=== PATIENT | male | born 1940 | race Caucasian/White ===

== ENCOUNTER 2018-11-13 17:39 | Inpatient (IN) | payer OTHER | END 2018-11-16 17:43 | disposition short-term general hospital (02) | LOC: ER 17:39 → TELE-EAST 20:58 | DX: I50.43 Acute on chronic combined systolic (congestive) and diastolic (congestive) heart failure (principal); I24.9 Acute ischemic heart disease, unspecified; Z95.5 Presence of coronary angioplasty implant and graft; I25.10 Atherosclerotic heart disease of native coronary artery without angina pectoris; I11.0 Hypertensive heart disease with heart failure; Z95.0 Presence of cardiac pacemaker; Z95.1 Presence of aortocoronary bypass graft; Z82.49 Family history of ischemic heart disease and other diseases of the circulatory system; Z86.73 Personal history of transient ischemic attack (TIA), and cerebral infarction without residual deficits ==

== ENCOUNTER 2024-04-25 16:54 | Inpatient (IN) | payer OTHER ==
[~2024-04-25] VITALS: Ht 175.3 cm; Wt 72.3 kg
[~2024-04-25 16:54] MED LIST: APIX5TAB PO; ATOR-507 PO; CLON0.1T PO; CLOP75TA28 PO; FURO1TAB31 PO; ISOS1TAB29 PO; METO-158 PO; NITR0.4S29 SL; POTA-36 PO; RANO500T PO; SACU1TAB4 PO; TRAZ-228 PO
[2024-04-25 19:47] LABS: Basophils # (auto) 0.1 10 ^3/uL (0-0.2); Basophils % (auto) 0.8 % (0.0-2.0); Eosinophils # (auto) 0.1 10 ^3/uL (0-0.8); Eosinophils % (auto) 1.1 % (0.0-7.0); Hemoglobin 11.5 g/dL (13.5-17.5); Lymphocytes # (auto) 1.1 10 ^3/uL (0.4-5.4); Lymphocytes % (auto) 10.7 % (10.0-50.0); Mean Corpuscular Hemoglobin 27.3 pg (28.0-32.0); Mean Corpuscular Hgb Conc. 32.8 g/dL (32.0-36.0); Mean Corpuscular Volume 83.3 fL (80.0-100.0); Monocytes # (auto) 0.7 10 ^3/uL (0-1.3); Monocytes % (auto) 6.5 % (0.0-12.0); Neutrophils # (auto) 8.6 10 ^3/uL (1.6-8.6); Neutrophils % (auto) 80.9 % (37.0-80.0); Nucleated Red Blood Cells % 0.2 %; Red Blood Cells 4.21 10^6/uL (4.5-5.90); Red Cell Distribution Width 19.5 % (11.8-14.3); White Blood Cell 10.7 10^3/uL (4.4-10.8)
[2024-04-25 20:01] LABS: Alanine Aminotransferase 29 U/L (7-40); Albumin 4.2 g/dL (3.2-4.8); Alkaline Phosphatase 122 U/L (46-116); Anion Gap 9 (5-15); Aspartate Aminotransferase 26 U/L (13-40); BUN/Creatinine Ratio 16.9 (10.0-20.0); Blood Urea Nitrogen 25 mg/dL (9-23); Calcium 8.9 mg/dL (8.7-10.4); Carbon Dioxide 23 mmol/L (20-30); Chloride 106 mmol/L (98-107); Glucose 98 mg/dL (74-106); Potassium 4.5 mmol/L (3.5-5.1); Sodium 138 mmol/L (136-145)
[2024-04-25 20:02] LABS: Bilirubin, Total 2.5 mg/dL (0.2-1.0); Total Protein 6.5 g/dL (5.7-8.2)
[2024-04-25 21:06] VITALS: PULSE 66; RESP 16; O2SAT 97
[2024-04-25] MEDS: AZITHROMYCIN 500MG/ 250ML 250 ML IV ONE (22:00)
[2024-04-25 22:45] VITALS: PULSE 72; RESP 16; O2SAT 98
[2024-04-25] MEDS ORDERED: HYDROcodone-ACET 5/325MG TAB PO PRN (23:15)
[2024-04-25] MEDS ORDERED: hydrALAZINE HCL 20 MG/ML VL IV PRN (23:15)
[2024-04-25] MEDS ORDERED: DOCUSATE SOD 100 MG CAP PO PRN (23:15)
[2024-04-25] MEDS ORDERED: ONDANSETRON HCL 4 MG/2 ML VIAL IV PRN (23:15)
[2024-04-25] MEDS: FUROSEMIDE 100 MG/10ML VIAL IV ONE (23:43)
[2024-04-25 23:45] LABS: Urine Bacteria None Seen /hpf (None Seen)
[2024-04-25] MEDS ORDERED: NITROGLYCERIN 0.4 MG SL TAB SL PRN (23:45)
[2024-04-25] MEDS ORDERED: MORPHINE SULFATE INJ 2 MG/ml SYRG IV PRN (23:45)
[2024-04-25 23:53] LABS: Urine Blood 1+ /uL (Negative); Urine Clarity Clear (Clear); Urine Color Yellow (Yellow); Urine Protein, UAD 1+ (Negative); Urine Specific Gravity 1.023 (1.001-1.035); Urine Urobilinogen 2 mg/dL (Negative); Urine WBC 2 /hpf (0 - 3); Urine WBC Clumps PRESENT /hpf (None Seen); Urine pH 5.5 (5.0-9.0)
[2024-04-26] VITALS (11 sets, daily range): BP systolic 85–137; BP diastolic 45–98; PULSE 58–81; RESP 16–20; TEMP 97.1–98.1; O2SAT 91–99
[2024-04-26] MEDS ORDERED: DAPA1TAB4 PO (02:48)
[2024-04-26] MEDS ORDERED: LOPE2CAP PO (02:48)
[2024-04-26] MEDS ORDERED: LOSA-533 PO (02:48)
[2024-04-26] MEDS ORDERED: TAMS0.4C36 PO (02:48)
[2024-04-26] MEDS ORDERED: FINA5TAB4 PO (02:48)
[2024-04-26] MEDS ORDERED: ASPI-498 OR (02:48)
[2024-04-26] MEDS ORDERED: TORS20TA20 PO (02:48)
[2024-04-26] MEDS ORDERED: METH-552 PO (02:48)
[2024-04-26] MEDS ORDERED: PRED10TA PO (02:48)
[2024-04-26] MEDS: SODIUM CHLOR 0.9% PF (SALINE LOCK) 10ML VIAL/SYR IV SCH (05:50)
[2024-04-26 06:39] LABS: Basophils # (auto) 0.1 10 ^3/uL (0-0.2); Basophils % (auto) 0.8 % (0.0-2.0); Eosinophils # (auto) 0.2 10 ^3/uL (0-0.8); Eosinophils % (auto) 1.7 % (0.0-7.0); Hematocrit 32.2 % (41.0-53.0); Hemoglobin 11.1 g/dL (13.5-17.5); Lymphocytes # (auto) 1.2 10 ^3/uL (0.4-5.4); Lymphocytes % (auto) 12.3 % (10.0-50.0); Mean Corpuscular Hemoglobin 28.3 pg (28.0-32.0); Mean Corpuscular Hgb Conc. 34.5 g/dL (32.0-36.0); Mean Corpuscular Volume 82.1 fL (80.0-100.0); Monocytes # (auto) 0.7 10 ^3/uL (0-1.3); Monocytes % (auto) 7.4 % (0.0-12.0); Neutrophils # (auto) 7.6 10 ^3/uL (1.6-8.6); Neutrophils % (auto) 77.8 % (37.0-80.0); Red Blood Cells 3.93 10^6/uL (4.5-5.90); Red Cell Distribution Width 19.1 % (11.8-14.3); White Blood Cell 9.8 10^3/uL (4.4-10.8)
[2024-04-26 06:49] LABS: Alanine Aminotransferase 25 U/L (7-40); Albumin 3.9 g/dL (3.2-4.8); Alkaline Phosphatase 107 U/L (46-116); Anion Gap 8 (5-15); Aspartate Aminotransferase 23 U/L (13-40); BUN/Creatinine Ratio 15.4 (10.0-20.0); Bilirubin, Total 2.3 mg/dL (0.2-1.0); Blood Urea Nitrogen 22 mg/dL (9-23); Calcium 8.7 mg/dL (8.7-10.4); Carbon Dioxide 23 mmol/L (20-30); Chloride 107 mmol/L (98-107); Glucose 92 mg/dL (74-106); Sodium 138 mmol/L (136-145); Total Protein 6.2 g/dL (5.7-8.2)
[2024-04-26 08:52] LABS: Amphetamine Screen, Urine Neg (NEGATIVE); Benzodiazephine Screen, Urine Neg (NEGATIVE)
[2024-04-26 08:53] LABS: Barbiturate Scree,Urine Neg (NEGATIVE); Cannabinoid Screen, Urine Neg (NEGATIVE); Cocaine Screen, Urine Neg (NEGATIVE); Opiate Scree,Urine Neg (NEGATIVE); Phencyclidine Screen, Urine Neg (NEGATIVE)
[2024-04-26] MEDS: APIXABAN 5 MG TAB PO SCH ×2 (10:17→21:04)
[2024-04-26] MEDS: CARVEDILOL 12.5 MG TAB PO SCH (10:17)
[2024-04-26] MEDS: FUROSEMIDE 40 MG/4 ML VIAL IV SCH (10:17)
[2024-04-26] MEDS: ACETAMINOPHEN 325 MG TAB PO PRN (10:25)
[2024-04-26] MEDS: AZITHROMYCIN 500MG/ 250ML 250 ML IV SCH (11:09)
[2024-04-26] MEDS ORDERED: NITROGLYCERIN 0.4 MG SL TAB SL PRN (11:45)
[2024-04-26] MEDS: ATORVASTATIN 20 MG TAB PO ONE (18:25)
[2024-04-26] MEDS: TAMSULOSIN HYDROCHLORIDE 0.4 MG CAP PO SCH (18:26)
[2024-04-26] MEDS: RANOLAZINE ER 500 MG TAB PO SCH (21:05)
[2024-04-26] MEDS: ATORVASTATIN 20 MG TAB PO SCH (21:05)
[2024-04-26] MEDS ORDERED: SACUBITRIL-VALSARTAN 24mg/26mg TAB PO SCH (22:00)
[2024-04-26] MEDS ORDERED: ISOSORBIDE MONONITRATE ER 60 MG TAB PO SCH (22:00)
[2024-04-26] MEDS ORDERED: METOPROLOL TARTRATE 50 MG TAB PO SCH (22:00)
[2024-04-27] VITALS (8 sets, daily range): BP systolic 98–136; BP diastolic 54–85; PULSE 58–77; RESP 16–20; TEMP 97.5–97.8; O2SAT 93–100
[2024-04-27 05:12] LABS: Anion Gap 8 (5-15); Basophils # (auto) 0.1 10 ^3/uL (0-0.2); Basophils % (auto) 0.7 % (0.0-2.0); Carbon Dioxide 22 mmol/L (20-30); Chloride 106 mmol/L (98-107); Eosinophils # (auto) 0.3 10 ^3/uL (0-0.8); Eosinophils % (auto) 2.9 % (0.0-7.0); Hematocrit 32.6 % (41.0-53.0); Hemoglobin 10.7 g/dL (13.5-17.5); Lymphocytes # (auto) 1.3 10 ^3/uL (0.4-5.4); Lymphocytes % (auto) 12.2 % (10.0-50.0); Mean Corpuscular Hemoglobin 27.5 pg (28.0-32.0); Mean Corpuscular Hgb Conc. 32.9 g/dL (32.0-36.0); Mean Corpuscular Volume 83.4 fL (80.0-100.0); Monocytes # (auto) 0.6 10 ^3/uL (0-1.3); Neutrophils # (auto) 8.2 10 ^3/uL (1.6-8.6); Neutrophils % (auto) 78.2 % (37.0-80.0); Nucleated Red Blood Cells % 0.1 %; Potassium 3.8 mmol/L (3.5-5.1); Red Blood Cells 3.91 10^6/uL (4.5-5.90); Red Cell Distribution Width 19.5 % (11.8-14.3); Sodium 136 mmol/L (136-145); White Blood Cell 10.5 10^3/uL (4.4-10.8)
[2024-04-27 05:13] LABS: Calcium 8.4 mg/dL (8.7-10.4)
[2024-04-27 05:18] LABS: Blood Urea Nitrogen 21 mg/dL (9-23); Glucose 92 mg/dL (74-106)
[2024-04-27] MEDS: CLOPIDOGREL BISULFATE 75 MG TAB PO SCH (09:31)
[2024-04-27] MEDS: FINASTERIDE 5 MG TAB PO SCH (09:32)
[2024-04-27] MEDS: methIMAzole 5 MG TAB PO SCH (09:32)
[2024-04-27] MEDS: ASPirin-EC 81 mg tab PO SCH (09:36)
[2024-04-27] MEDS ORDERED: TORSEMIDE 20 MG TAB PO SCH (10:00)
[2024-04-27] MEDS ORDERED: LOSARTAN POTASSIUM 25 MG TAB PO SCH (10:00)
[2024-04-27] MEDS: SACUBITRIL-VALSARTAN 24mg/26mg TAB PO SCH (17:09)
[2024-04-27] MEDS: APIXABAN 2.5 MG TAB PO SCH (21:41)
[2024-04-28] VITALS (7 sets, daily range): BP systolic 108–128; BP diastolic 56–74; PULSE 71–78; RESP 16–20; TEMP 97.6–98; O2SAT 95–99
[2024-04-28 06:29] LABS: Basophils # (auto) 0 10 ^3/uL (0-0.2); Basophils % (auto) 0.4 % (0.0-2.0); Eosinophils # (auto) 0.2 10 ^3/uL (0-0.8); Eosinophils % (auto) 1.7 % (0.0-7.0); Hematocrit 32.8 % (41.0-53.0); Lymphocytes % (auto) 9.1 % (10.0-50.0); Mean Corpuscular Hemoglobin 27.9 pg (28.0-32.0); Mean Corpuscular Hgb Conc. 33.7 g/dL (32.0-36.0); Mean Corpuscular Volume 82.7 fL (80.0-100.0); Monocytes # (auto) 0.7 10 ^3/uL (0-1.3); Monocytes % (auto) 6.6 % (0.0-12.0); Neutrophils # (auto) 9.1 10 ^3/uL (1.6-8.6); Neutrophils % (auto) 82.2 % (37.0-80.0); Nucleated Red Blood Cells % 0.1 %; Red Blood Cells 3.96 10^6/uL (4.5-5.90); Red Cell Distribution Width 19.3 % (11.8-14.3)
[2024-04-28 06:34] LABS: Chloride 105 mmol/L (98-107); Potassium 3.8 mmol/L (3.5-5.1); Sodium 137 mmol/L (136-145)
[2024-04-28 06:35] LABS: Calcium 8.4 mg/dL (8.7-10.4)
[2024-04-28 06:40] LABS: BUN/Creatinine Ratio 14.4 (10.0-20.0); Blood Urea Nitrogen 18 mg/dL (9-23)
[2024-04-28 06:59] LABS: Glucose 91 mg/dL (74-106)
[2024-04-28 07:35] LABS: Anion Gap 12 (5-15); Carbon Dioxide 20 mmol/L (20-30)
[2024-04-28 09:21] LABS: Free T3 2.19 pg/mL (2.3-4.2); Free T4 (Free Thyroxine) 1.51 ng/dL (0.89-1.76)
[2024-04-28] MEDS ORDERED: METOPROLOL SUCCINATE XL 50 MG TAB PO SCH (10:00)
[2024-04-28] MEDS ORDERED: cloNIDine HCL 0.1 MG TAB PO SCH (10:00)
[2024-04-28] MEDS ORDERED: FUROSEMIDE 40 MG TAB PO SCH (10:00)
[2024-04-28] MEDS ORDERED: SACU1TAB PO (14:13)
[2024-04-28] MEDS ORDERED: APIX2.5T PO (14:13)
[2024-04-28] MEDS ORDERED: METO25TA93 PO (14:13)
[2024-04-28] MEDS ORDERED: ATORVASTATIN 20 MG TAB PO SCH (22:00)
== END 2024-04-28 17:33 | disposition home or self-care (01) | DRG 291 ==
LOC: ER 17:01 → TELE 23:37 → TELE-WESTW 04-26 02:13
PROVIDERS: ADMIT Internal Medicine; ATTEND Internal Medicine
DX: I13.0 Hypertensive heart and chronic kidney disease with heart failure and stage 1 through stage 4 chronic kidney disease, or unspecified chronic kidney disease (principal); I50.43 Acute on chronic combined systolic (congestive) and diastolic (congestive) heart failure; N17.9 Acute kidney failure, unspecified; K56.7 Ileus, unspecified; I27.22 Pulmonary hypertension due to left heart disease; I25.10 Atherosclerotic heart disease of native coronary artery without angina pectoris; E05.90 Thyrotoxicosis, unspecified without thyrotoxic crisis or storm; I48.91 Unspecified atrial fibrillation; E80.6 Other disorders of bilirubin metabolism; K74.60 Unspecified cirrhosis of liver; N18.2 Chronic kidney disease, stage 2 (mild); Z95.1 Presence of aortocoronary bypass graft; Z83.3 Family history of diabetes mellitus; Z82.49 Family history of ischemic heart disease and other diseases of the circulatory system; Z86.73 Personal history of transient ischemic attack (TIA), and cerebral infarction without residual deficits; K52.9 Noninfective gastroenteritis and colitis, unspecified
CPT/HCPCS: 36415; 70450; 71045; 74176; 80048; 80053; 80307; 81001; 82607; 83880; 84439; 84443; 84481; 84484; 85025; 93005; 93306; 93886; 93970; G0378

== ENCOUNTER 2024-07-24 17:44 | Emergency (ER) | payer OTHER ==
[~2024-07-24] VITALS: Ht 172.7 cm; Wt 69.0 kg
[~2024-07-24 17:44] MED LIST changes: +APIX2.5T PO; -APIX5TAB PO; +ASPI-498 OR; -CLON0.1T PO; +DAPA1TAB4 PO; +FINA5TAB4 PO; -ISOS1TAB29 PO; +METH-552 PO; -METO-158 PO; +METO25TA93 PO; +PRED10TA PO; +SACU1TAB PO; -SACU1TAB4 PO; +TAMS0.4C39 PO
[2024-07-24 18:21] VITALS: BP 107/65; PULSE 95; RESP 16; TEMP 98.5; O2SAT 98
[2024-07-24] MEDS ORDERED: NITR-87 PO (20:37)
--- NOTE | 2024-07-24 20:37 | ED.PDOC ---
General HPI Comments This is a 84-year-old male presents to the ED chief complaint burning with urination. Patient states symptoms started after having a indwelling Harris catheter placed 2 days ago in the hospital. He states symptoms start her symptoms the pressure builds up and urine comes out of the catheter his penile shaft starts burning. Patient also notes speckles of blood in catheter tubing. Denies fever, chills, nausea, vomiting, back pain, Harris leakage, abdominal pain. Chief Complaint: Urinary Time Seen by MD: 18:24 Primary Care Provider: LUDIVINA Reviewed notes: Nurses Notes, Medications, Allergies Allergies: Coded Allergies: Atorvastatin (Unverified Allergy, Unknown, 09/07/19) Ranolazine (Verified Allergy, Unknown, 09/05/19) Yellow Dye (Verified Allergy, Unknown, 09/05/19) Home Meds Active Scripts Nitrofurantoin Monohydrate Mac (Macrobid) 100 Mg Cap, 100 MG PO BID for 5 Days, #10 CAP Prov:ALCON CASTRO 07/24/24 Metoprolol Succinate (Metoprolol Succinate Er) 25 Mg Tab, 1 TAB PO DAILY for 30 Days, #30 TAB 5 Refills Prov:CHALINO SILVA RESIDENT 04/28/24 Sacubitril-Valsartan (Entresto 24-26 mg) 1 Tab Tab, 1 TAB PO BID for 30 Days, #60 TAB Prov:CHALINO SILVA RESIDENT 04/28/24 Apixaban Base (ELIQUIS) 2.5 Mg Tab, 2.5 MG PO BID for 30 Days, #60 TAB Prov:CHALINO SILVA RESIDENT 04/28/24 Ranolazine (Ranexa) 500 Mg Tab, 500 MG PO BID, #60 TAB Prov:LISA PERKINS MD 08/12/19 Reported Medications Aspirin (ASPIRIN 81) 81 Mg Tab, 81 MG OR, TAB 04/26/24 Finasteride (Finasteride) 5 Mg Tab, 5 MG PO DAILY for 30 Days, MG 04/26/24 Methimazole (Methimazole) 10 Mg Tab, 10 MG PO, TAB 04/26/24 Tamsulosin Hcl (Tamsulosin Hcl) 0.4 Mg Cap, 0.4 MG PO QPM for 30 Days, MG 04/26/24 Prednisone (Prednisone) 10 Mg Tab, 10 MG PO, MG 04/26/24 Dapagliflozin Propanediol (Farxiga) 10 Mg Tab, 10 MG PO, TAB 04/26/24 Potassium Chloride (POTASSIUM CHLORIDE CR) 10 Meq Tb, 1 TAB PO DAILY, #30 TAB 5 Refills 06/12/19 Nitroglycerin (NTROSTAT SUBLINGUAL) 0.4 Mg Sl, 0.4 MG SL PRN PRN for FOR CHEST PAIN, TAB *MAY REPEAT EVERY 5 MINUTES X 3 TOTAL IF NO RELIEF, INITIATE ANALGESIC THERAPY. NOTIFY PHYSICIAN *Do not crush. 06/12/19 Trazodone Hcl (Trazodone Hcl) 100 Mg Tab, 1 TAB PO QPM, #30 TAB 1 Refill 06/12/19 Atorvastatin Calcium (Lipitor) 40 Mg Tab, 1 TAB PO QPM, #90 TAB 1 Refill 06/12/19 Furosemide (Lasix) 40 Mg Tab, 40 MG PO DAILY, TAB 06/12/19 Clopidogrel Bisulfate (Plavix) 75 Mg Tab, 75 MG PO DAILY, TAB 06/12/19 Mode of Arrival: Ambulatory Past Medical History PAST MEDICAL HISTORY: AFIB, CAD, CHF, High Lipids, HTN, [place], TIA Surgical History: CABG, Pacemaker, PTCA Family History Family History: Family hx of DM, Family hx of Cancer, Family hx of heart [place], Family hx of HTN Social History Smoker: Non-Smoker Alcohol: Denies ETOH Use Drugs: Denies Drug Use Lives In: Home Constitutional: denies: chills, diaphoresis, fatigue, fever, malaise, sweats, weakness, others EENTM: denies: blurred vision, double vision, ear bleeding, ear discharge, ear drainage, ear pain, ear ringing, eye pain, eye redness, hearing loss, mouth pain, mouth swelling, nasal discharge, nose bleeding, nose congestion, nose pain, photophobia, tearing, throat pain, throat swelling, voice changes, others Respiratory: denies: cough, hemoptysis, orthopnea, SOB at rest, shortness of breath, SOB with excertion, stridor, wheezing, others Cardiovascular: denies: chest pain, dizzy spells, diaphoresis, Dyspnea on exertion, edema, irregular heart beat, left arm pain, lightheadedness, palpitations, PND, syncope, others Gastrointestinal: denies: abdomen distended, abdominal pain, blood streaked bowels, constipated, diarrhea, dysphagia, difficulty swallowing, hematemesis, melena, nausea, poor appetite, poor fluid intake, rectal bleeding, rectal pain, vomiting, others Genitourinary: reports: burning, hematuria; denies: dysuria, flank pain, frequency, incontinence, penile discharge, penile sore, pain, testicle pain, testicle swelling, urgency, others Neurological: denies: dizziness, fainting, headache, left sided numbness, left sided weakness, numbness, paresthesia, pre-existing deficit, right sided numbness, right sided weakness, seizure, speech problems, tingling, tremors, weakness, others Musculoskeletal: denies: back pain, gout, joint pain, joint swelling, muscle pain, muscle stiffness, neck pain, others Integumetry: denies: bruises, change in color, change in hair/nails, dryness, laceration, lesions, lumps, rash, wounds, others Allergic/Immunocompromised: denies: Difficulty Healing, Frequent Infections, Hives, Itching, others Hematologic/Lymphatic: denies: anemia, blood clots, easy bleeding, easy bruising, swollen glands, others Endocrine: denies: excessive hunger, excessive sweating, excessive thirst, excessive urination, flushing, intolerance to cold, intolerance to heat, unexplained weight gain, unexplained weight loss, others Psychiatric: denies: anxiety, bipolar disorder, depression, hopeless, panic disorder, schizophrenia, sleepless, suicidal, others Physical Exam General Appearance: No Apparent Distress, Normal HEENT: Normal ENT Inspection, Pharynx Normal, TMs Normal Neck: Full Range of Motion, Non-Tender, Normal, Normal Inspection Respiratory: Chest Non-Tender, Lungs Clear, No Accessory Muscle Use, No Respiratory Distress, Normal Breath Sounds Cardiovascular: No Edema, No JVD, No Murmur, No Gallop, Normal Peripheral Pulses, Regular Rate/Rhythm Breast Exam: Deferred Gastrointestinal: No Organomegaly, Non Tender, No Pulsatile Mass, Normal Bowel Sounds, Soft Genitalia: Deferred Pelvic: Deferred Rectal: Deferred Extremities: No calf tenderness, Normal capillary refill, Normal inspection, Normal range of motion, Non-tender, No pedal edema Musculoskeletal : Apperance: Normal Neurologic: Alert, reception agent II-XII nml as Tested, No Motor Deficits, Normal Affect, Normal Mood, No Sensory Deficits Cerebellar Function: Normal Reflexes: Normal Skin: Dry, Normal Color, Warm Lymphatic: No Adenopathy Was a procedure done? Was a procedure done?: No Differential Diagnosis Kidney stone (Female): Urolithiasis Penile/Scrotal: UTI, Urinary Retention Urinary Problem (Male): Urethritis X-Ray, Labs, Meds, VS Vital Signs Date Time Temp Pulse Resp B/P (MAP) Pulse Ox O2 Delivery O2 Flow Rate FiO2 07/24/24 19:22 Room Air 07/24/24 18:21 98.5 95 16 107/65 (79) 98 98.5 07/24/24 18:21 98.5 95 16 107/65 (79) 98 Lab Test 07/24/24 19:29 Range/Units Urine Color Pending Urine Clarity Pending Urine pH Pending Urine Specific [place] Pending Urine Protein Pending Urine Ketones Pending Urine Blood Pending Urine Nitrite Pending Urine Bilirubin Pending Urine Urobilinogen Pending Urine Leukocyte Esterase Pending Urine RBC Pending Urine WBC Pending Urine Squamous Epithelial Cells Pending Urine Bacteria Pending Urine Glucose Pending X-Ray, Labs, Meds, VS Comment Leg bag replaced instructions given for continued care. UA obtained likely urethritis versus UTI. We will start trial of antibiotics. Macrobid twice daily x5 days. Advised to follow up with scheduled appointment in Urology. Advised to return to the ER for increasing pain, nausea, vomiting, high fevers, back pain, gross blood in catheter tubing and bag, or any concerning symptoms. Patient agrees with discharge plan of care. Time of 1ST Reevaluation: 20:36 Reevaluation 1ST: Improved Patient Education/Counseling: Diagnosis, Treatment, Prognosis, Need For Follow Up Family Education/Counseling: Diagnosis, Treatment, Prognosis, Need For Follow Up Departure 1 Departure Time of Disposition: 20:36 Impression: Primary Impression: UTI (urinary tract infection) Qualified Codes: N30.01 - Acute cystitis with hematuria Disposition: HOME / SELF CARE / HOMELESS Condition: Stable e-Prescriptions Nitrofurantoin Monohydrate Mac (Macrobid) 100 Mg Cap 100 MG PO BID for 5 Days, #10 CAP Prov: ALCON CASTRO 07/24/24 Discharged With: Relative, Spouse Critical Care Note Critical Care Time?: No Stability Stability form required: No ALCON CASTRO Jul 24, 2024 20:37
[2024-07-24 20:58] LABS: Urine Bacteria FEW /hpf (None Seen); Urine Blood 3+ /uL (Negative); Urine Clarity Turbid (Clear); Urine Color Dark-Yellow (Yellow); Urine Protein, UAD TRACE (Negative); Urine Specific Gravity 1.012 (1.001-1.035); Urine Urobilinogen Normal (Negative); Urine WBC 74 /hpf (0 - 3); Urine pH 5.5 (5.0-9.0)
== END 2024-07-24 21:12 | disposition home or self-care (01) ==
LOC: ER 17:47
DX: N39.0 Urinary tract infection, site not specified (principal); I11.0 Hypertensive heart disease with heart failure; I50.9 Heart failure, unspecified; Z79.01 Long term (current) use of anticoagulants; Z79.02 Long term (current) use of antithrombotics/antiplatelets; Z79.899 Other long term (current) drug therapy; Z86.73 Personal history of transient ischemic attack (TIA), and cerebral infarction without residual deficits; Z95.0 Presence of cardiac pacemaker; Z95.1 Presence of aortocoronary bypass graft; Z88.6 Allergy status to analgesic agent
CPT/HCPCS: 81001

== ENCOUNTER 2024-08-09 11:03 | Emergency (ER) | payer OTHER ==
[~2024-08-09 11:03] MED LIST changes: +NITR-87 PO
== END 2024-08-09 12:08 | disposition left against medical advice (07) ==
LOC: ER 11:03
DX: Z48.03 Encounter for change or removal of drains (principal); Z53.21 Procedure and treatment not carried out due to patient leaving prior to being seen by health care provider

== ENCOUNTER 2024-08-23 19:26 | Emergency (ER) | payer OTHER ==
[~2024-08-23] VITALS: Ht 175.3 cm; Wt 74.2 kg
[2024-08-23 19:45] VITALS: BP 151/67; PULSE 100; RESP 18; O2SAT 98
[2024-08-23] MEDS ORDERED: HYDROcodone-ACET 5/325MG TAB PO ONE (19:45)
--- NOTE | 2024-08-23 20:10 | ED.PDOC ---
History of Present Illness HPI Comments 84 y/o M, with a Hx of UTI's, presents with spouse for c/o penile pain, today. Patient endorses on having penile pain after having his Harris catheter placed, yesterday, at around entrance site. Patient comments on Hx of frequent "infections" following Harris catheter placements in the past and describes his c urrent pain as burning in quality. He endorses no recent injuries or further relevant or pertinent Hx. He denies having any urinary retention, incontinence, hematuria, weakness, fever, chills, or other associated symptoms or modifiers at this time. Vital signs were stable on arrival. Time Seen by MD: 19:45 Primary Care Provider: LUDIVINA Reviewed Notes: Nurses Notes, Medications, Allergies Allergies: Coded Allergies: Atorvastatin (Unverified Allergy, Unknown, 09/07/19) Ranolazine (Verified Allergy, Unknown, 09/05/19) Yellow Dye (Verified Allergy, Unknown, 09/05/19) Home Meds Active Scripts Nitrofurantoin Monohydrate Mac (Macrobid) 100 Mg Cap, 100 MG PO BID for 5 Days, #10 CAP Prov:ALCON CASTRO 07/24/24 Metoprolol Succinate (Metoprolol Succinate Er) 25 Mg Tab, 1 TAB PO DAILY for 30 Days, #30 TAB 5 Refills Prov:CHALINO SILVA RESIDENT 04/28/24 Sacubitril-Valsartan (Entresto 24-26 mg) 1 Tab Tab, 1 TAB PO BID for 30 Days, #60 TAB Prov:CHALINO SILVA RESIDENT 04/28/24 Apixaban Base (ELIQUIS) 2.5 Mg Tab, 2.5 MG PO BID for 30 Days, #60 TAB Prov:CHALINO SILVA RESIDENT 04/28/24 Ranolazine (Ranexa) 500 Mg Tab, 500 MG PO BID, #60 TAB Prov:LISA PERKINS MD 08/12/19 Reported Medications Aspirin (ASPIRIN 81) 81 Mg Tab, 81 MG OR, TAB 04/26/24 Finasteride (Finasteride) 5 Mg Tab, 5 MG PO DAILY for 30 Days, MG 04/26/24 Methimazole (Methimazole) 10 Mg Tab, 10 MG PO, TAB 04/26/24 Tamsulosin Hcl (Tamsulosin Hcl) 0.4 Mg Cap, 0.4 MG PO QPM for 30 Days, MG 04/26/24 Prednisone (Prednisone) 10 Mg Tab, 10 MG PO, MG 04/26/24 Dapagliflozin Propanediol (Farxiga) 10 Mg Tab, 10 MG PO, TAB 04/26/24 Potassium Chloride (POTASSIUM CHLORIDE CR) 10 Meq Tb, 1 TAB PO DAILY, #30 TAB 5 Refills 06/12/19 Nitroglycerin (NTROSTAT SUBLINGUAL) 0.4 Mg Sl, 0.4 MG SL PRN PRN for FOR CHEST PAIN, TAB *MAY REPEAT EVERY 5 MINUTES X 3 TOTAL IF NO RELIEF, INITIATE ANALGESIC THERAPY. NOTIFY PHYSICIAN *Do not crush. 06/12/19 Trazodone Hcl (Trazodone Hcl) 100 Mg Tab, 1 TAB PO QPM, #30 TAB 1 Refill 06/12/19 Atorvastatin Calcium (Lipitor) 40 Mg Tab, 1 TAB PO QPM, #90 TAB 1 Refill 06/12/19 Furosemide (Lasix) 40 Mg Tab, 40 MG PO DAILY, TAB 06/12/19 Clopidogrel Bisulfate (Plavix) 75 Mg Tab, 75 MG PO DAILY, TAB 06/12/19 Information Source: Patient, Spouse Mode of Arrival: Ambulatory Severity: Moderate Timing: Hours Duration: Since onset Prehospital treatment: None Past Medical History PAST MEDICAL HISTORY: AFIB, CAD, CHF, High Lipids, HTN, [place], TIA, UTI'S Surgical History: CABG, Pacemaker, PTCA Surgical History (Other): Harris catheter placement Family History Family History: Family hx of DM, Family hx of Cancer, Family hx of heart [place], Family hx of HTN Social History Smoker: Non-Smoker Alcohol: Denies ETOH Use Drugs: Denies Drug Use Lives In: Home Constitutional: denies: chills, diaphoresis, fatigue, fever, malaise, sweats, weakness, others EENTM: denies: blurred vision, double vision, ear bleeding, ear discharge, ear drainage, ear pain, ear ringing, eye pain, eye redness, hearing loss, mouth pain, mouth swelling, nasal discharge, nose bleeding, nose congestion, nose pain, photophobia, tearing, throat pain, throat swelling, voice changes, others Respiratory: denies: cough, hemoptysis, orthopnea, SOB at rest, shortness of breath, SOB with excertion, stridor, wheezing, others Cardiovascular: denies: chest pain, dizzy spells, diaphoresis, Dyspnea on exertion, edema, irregular heart beat, left arm pain, lightheadedness, palpitations, PND, syncope, others Gastrointestinal: denies: abdomen distended, abdominal pain, blood streaked bowels, constipated, diarrhea, dysphagia, difficulty swallowing, hematemesis, melena, nausea, poor appetite, poor fluid intake, rectal bleeding, rectal pain, vomiting, others Genitourinary: reports: dysuria, pain (penile pain ); denies: burning, flank pain, frequency, hematuria, incontinence, penile discharge, penile sore, testicle pain, testicle swelling, urgency, others Neurological: denies: dizziness, fainting, headache, left sided numbness, left sided weakness, numbness, paresthesia, pre-existing deficit, right sided numbness, right sided weakness, seizure, speech problems, tingling, tremors, weakness, others Musculoskeletal: denies: back pain, gout, joint pain, joint swelling, muscle pain, muscle stiffness, neck pain, others Integumetry: denies: bruises, change in color, change in hair/nails, dryness, laceration, lesions, lumps, rash, wounds, others Allergic/Immunocompromised: denies: Difficulty Healing, Frequent Infections, Hives, Itching, others Hematologic/Lymphatic: denies: anemia, blood clots, easy bleeding, easy bruising, swollen glands, others Endocrine: denies: excessive hunger, excessive sweating, excessive thirst, excessive urination, flushing, intolerance to cold, intolerance to heat, unexplained weight gain, unexplained weight loss, others Psychiatric: denies: anxiety, bipolar disorder, depression, hopeless, panic disorder, schizophrenia, sleepless, suicidal, others All Other Systems: Reviewed and Negative (negative unless otherwise stated in HPI) Physical Exam General Appearance: Moderate Distress (Due to penile pain related to the Harris catheter placement.), Normal HEENT: Normal ENT Inspection, Pharynx Normal, TMs Normal Neck: Full Range of Motion, Non-Tender, Normal, Normal Inspection Respiratory: Chest Non-Tender, Lungs Clear, No Accessory Muscle Use, No Respiratory Distress, Normal Breath Sounds Cardiovascular: No Edema, No JVD, No Murmur, No Gallop, Normal Peripheral Pulse s, Regular Rate/Rhythm Breast Exam: Deferred Gastrointestinal: No Organomegaly, Non Tender, No Pulsatile Mass, Normal Bowel Sounds, Soft Genitalia: Other (Harris catheter in place , no signs of penile or urethral trauma.) Pelvic: Deferred Rectal: Deferred Extremities: No calf tenderness, Normal capillary refill, Normal inspection, Normal range of motion, Non-tender, No pedal edema Musculoskeletal : Apperance: Normal Neurologic: Alert, theater set production designer II-XII nml as Tested, No Motor Deficits, Normal Affect, Normal Mood, No Sensory Deficits Cerebellar Function: Normal Reflexes: Normal Skin: Dry, Normal Color, Warm Lymphatic: No Adenopathy Was a procedure done? Was a procedure done?: No Differential Dx Considerations may include: UTI, Harris catheter post-op complication X-Ray, Labs, Meds, VS Vital Signs Date Time Temp Pulse Resp B/P (MAP) Pulse Ox O2 Delivery O2 Flow Rate FiO2 08/23/24 19:45 97.6 100 18 151/67 (95) 98 X-Ray, Labs, Meds, VS Comment I waited for urine to be provided for an extended time, but according to nursing the patient had eloped from the facility. Time of 1ST Reevaluation: 00:36 Reevaluation 1ST: Unchanged Consultation: PCP, Urology Patient Education/Counseling: Diagnosis, Treatment Family Education/Counseling: Diagnosis, Treatment Departure 1 Departure Time of Disposition: 00:36 Impression: Primary Impression: Dysuria Disposition: 07 LEFT AWOL/ELOPED Condition: Fair Discharged With: Self Critical Care Note Critical Care Time?: No Stability Stability form required: No Heart Score Heart Score: Heart Score Response (Comments) Value History N/A 0 EKG N/A 0 Age N/A 0 Risk Factors N/A 0 Troponin N/A 0 Total 0 I personally scribed for XIOMY GARZA PAC ([email or web address]) on 08/23/24 at 20:10. Electronically submitted by Jose Alejandro Torres ([email or web address]). XIOMY GARZA PAC Aug 23, 2024 20:10
== END 2024-08-24 00:33 | disposition left against medical advice (07) ==
LOC: ER 19:26
DX: R30.0 Dysuria (principal); I11.0 Hypertensive heart disease with heart failure; N48.89 Other specified disorders of penis; I50.9 Heart failure, unspecified; I48.91 Unspecified atrial fibrillation; Z79.899 Other long term (current) drug therapy; Z86.73 Personal history of transient ischemic attack (TIA), and cerebral infarction without residual deficits; Z87.440 Personal history of urinary (tract) infections; Z95.0 Presence of cardiac pacemaker; Z95.1 Presence of aortocoronary bypass graft; Z98.890 Other specified postprocedural states